=== PATIENT | male | born 1975 | race Caucasian/White ===

== ENCOUNTER 2017-02-23 14:19 | Emergency (ER) | payer MEDICAID ==
[~2017-02-23] VITALS: Ht 180.3 cm; Wt 103.2 kg
[2017-02-23 15:35] VITALS: BP 171/100
== END 2017-02-23 15:35 | disposition home or self-care (01) ==
LOC: ED 14:19
DX: L03.113 Cellulitis of right upper limb (principal); I10 Essential (primary) hypertension; E11.9 Type 2 diabetes mellitus without complications
CPT/HCPCS: J0696

== ENCOUNTER 2017-11-17 23:23 | Emergency (ER) | payer OTHER ==
[~2017-11-17] VITALS: Ht 180.3 cm; Wt 98.4 kg
[2017-11-17 23:30] VITALS: Ht 180.3 cm; Wt 98.4 kg
[2017-11-18 01:14] VITALS: BP 153/94
== END 2017-11-18 01:14 | disposition home or self-care (01) ==
LOC: ED 23:23
DX: S83.91XA Sprain of unspecified site of right knee, initial encounter (principal); E11.9 Type 2 diabetes mellitus without complications; I10 Essential (primary) hypertension; X58.XXXA Exposure to other specified factors, initial encounter; Y93.02 Activity, running; Y92.89 Other specified places as the place of occurrence of the external cause; Y99.8 Other external cause status